=== PATIENT | female | born 1975 | race Caucasian/White ===

== ENCOUNTER 2022-09-18 16:13 | Emergency (ER) | payer MEDICAID ==
[~2022-09-18] VITALS: Ht 149.9 cm; Wt 63.5 kg
[2022-09-18 16:23] VITALS: BP 133/87
[2022-09-18] MEDS ORDERED: KETOROLAC 30 MG/ML VIAL IM ONE (17:35)
--- NOTE | 2022-09-18 18:15 | NUR ---
PT AMB TO ER BED 12
[2022-09-18] MEDS ORDERED: IBUP-2213 PO (18:19)
--- NOTE | 2022-09-18 19:09 | NUR ---
47 y/o female, c/o fifth digit pain on right foot in relation to hitting it on furniture earlier today. skin is pink/warm/dry. a&o x4, difficulty ambulating at this time, extremity does not appear with obvious deformity. lungs clear bl, heart rate even and regular. pt denies any fever, cp, sob, or cough at this time. pt states pain is 10/10 at this time. patient positioned for comfort. hob elevated. bed down. ermd made aware of pt. pmh: denies allergy: meperidine
[2022-09-18] MEDS ORDERED: KETOROLAC 30 MG/ML VIAL ONE (19:11)
[2022-09-18 19:23] VITALS: BP 133/87
--- NOTE | 2022-09-18 19:36 | NUR ---
Patient discharged with v/s stable. Written and verbal after care instructions given and explained. Patient verbalized understanding. Ambulatory with steady gait. All questions addressed prior to discharge. Advised to follow up with PMD. arm band was removed. pt went home with her belongings. discharged teaching was given.
== END 2022-09-18 19:23 | disposition home or self-care (01) ==
LOC: MED 16:13
DX: S99.201A Unspecified physeal fracture of phalanx of right toe, initial encounter for closed fracture (principal); X58.XXXA Exposure to other specified factors, initial encounter; Y93.89 Activity, other specified; Y92.89 Other specified places as the place of occurrence of the external cause; Y99.8 Other external cause status
CPT/HCPCS: 29515; 73660; 96372; 99283; J1885